=== PATIENT | female | born 1980 | race Caucasian/White ===

== ENCOUNTER → 2017-08-01 | Outpatient (CLI) | payer OTHER ==
[2017-08-01 12:12] LABS: BASO % 0.3 %; BASO ABS # 0.02 K/uL (0-0.2); COMPLETE YES; EOS % 2.9 %; IG% 0.2 %; LYMPH % 28.4 %; LYMPH ABS # 1.67 K/uL (1.2-3.4); MEAN CORPUSCULAR HEMOGLOBIN 29.3 pg (25-34); MEAN CORPUSCULAR HGB CONC 33.7 g/dl (32-36); MEAN PLATELET VOLUME 10.6 fL (7.4-10.4); MONO % 11.6 %; NEUT % 56.6 %; PLATELET COUNT 242 K/uL (130-400); RED BLOOD COUNT 4.71 M/uL (4.2-5.4); WHITE BLOOD COUNT 5.87 K/uL (4.8-10.8)
[2017-08-01 12:41] LABS: AST/SGOT 27 U/L (15-37); BLOOD UREA NITROGEN 9 mg/dl (7-18); BUN/CREATININE RATIO 13.9 (10-20); CALCIUM 9.3 mg/dl (8.5-10.1); CARBON DIOXIDE 28 mmol/L (21-32); CHLORIDE 106 mmol/L (98-107); CHOLESTEROL 188 mg/dl (0-200); CREATININE 0.68 mg/dl (0.60-1.20); GLUCOSE 89 mg/dl (70-99); SODIUM 139 mmol/L (136-145)
[2017-08-01 12:52] LABS: ALB/GLOB RATIO 1.1 (0.9-2); ALKALINE PHOSPHATASE 103 U/L (45-117); ALT/SGPT 79 U/L (12-78); CHOLESTEROL/HDL RATIO 2.9; HDL CHOLESTEROL 64 mg/dl; LDL CHOLESTEROL CALCULATED 94 mg/dl; THYROID STIMULATING HORMONE 0.906 uIu/ml (0.300-4.500); TRIGLYCERIDES 151 mg/dl (0-150); VERY LOW DENSITY LIPOPROT CALC 30 mg/dl
== END | disposition home or self-care (01) ==
LOC: C.LAB 10:49
PROVIDERS: ATTEND Neuromusculoskeletal Medicine & OMM
DX: Z00.00 Encounter for general adult medical examination without abnormal findings (principal); E66.3 Overweight; R03.0 Elevated blood-pressure reading, without diagnosis of hypertension

== ENCOUNTER → 2017-10-04 | Outpatient (CLI) | payer OTHER ==
--- NOTE | 2017-10-05 15:29 | MAMMOGRAPHY REPORT ---
BREAST MRI OF BOTH BREASTS : 10/04/2017 CLINICAL HISTORY: Screening breast MRI for BRCA gene mutation. Family history of breast cancer. COMPARISON: No prior exams were available for comparison. TECHNIQUE: Using a 1.5 Crys magnet and dedicated breast coil, multisequence axial images were obtain ed through the breasts. After uneventful IV administration of 7.5 mL of Gadavist, dynamic multiphase contrast-enhanced axial images, and sagittal postcontrast were obtained. Temporal subtraction axial images and 3-D MIP images are provided. Everything was then reviewed on a 3-D workstation, [employer]. However, the patient became nauseated after the contrast injection and there was a subsequent delay i n obtaining the dynamic postcontrast images. Therefore, kinetic information is not accurate and imme diate (40 second) postcontrast images were not obtained. FINDINGS: Right breast: There is minimal background parenchymal enhancement. No suspicious enhancing mass, non -mass enhancement, architectural distortion or other suspicious abnormality identified in the right b reast. No focal skin thickening or nipple retraction. The retromammary fat is intact. No suspiciou s right axillary lymphadenopathy. Left breast: There is minimal background parenchymal enhancement. No suspicious enhancing mass, non- mass enhancement, architectural distortion or other suspicious abnormality identified in the left dante ast. No focal skin thickening or nipple retraction. The retromammary fat is intact. No suspicious right axillary lymphadenopathy. IMPRESSION: ACR BI-RADS CATEGORY 0: INCOMPLETE EVALUATION: NEED ADDITIONAL IMAGING EVALUATION 1. There is no MRI evidence of malignancy in the breasts. However, postcontrast imaging was delayed due to nausea after the gadolinium injection and therefore kinetic information and immediate postcon trast images were not able to be obtained. Therefore, this could lower the sensitivity of the exam f or detecting breast cancer and the patient will be [facility]. 2. No suspicious axillary adenopathy. The patient will be called to schedule an appointment. Elly Mcgovern M.D. 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
== END | disposition home or self-care (01) ==
LOC: C.MRI 10:22
PROVIDERS: ATTEND Neuromusculoskeletal Medicine & OMM
DX: Z00.00 Encounter for general adult medical examination without abnormal findings (principal); Z80.3 Family history of malignant neoplasm of breast; Z15.01 Genetic susceptibility to malignant neoplasm of breast; Z15.02 Genetic susceptibility to malignant neoplasm of ovary